=== PATIENT | female | born 1945 | race Caucasian/White ===

== ENCOUNTER 2016-10-06 20:36 | Emergency (ER) | payer MEDICARE, BC ==
[2016-10-06 20:57] VITALS: TEMP 99.4
[2016-10-06 21:32] LABS: BASOPHILS % (AUTO) 1 % (0-3); EOSINOPHILS % (AUTO) 1 % (0-9); HEMATOCRIT 37 % (35-47); MEAN CORPUSCULAR HGB CONC 36.3 gm/dl (32.0-36.0); MEAN CORPUSCULAR VOLUME 90 fL (81-99); MONOCYTES % (AUTO) 5.9 % (0-12); NEUTROPHILS % (AUTO) 75.7 % (37-80)
[2016-10-06 21:40] LABS: CALCIUM 8.3 mg/dl (8.5-10.1); POTASSIUM 3.7 mMol/L (3.5-5.1)
[2016-10-06 23:00] VITALS: BP 129/56; PULSE 70; RESP 18; O2SAT 96
== END 2016-10-06 22:35 | disposition home or self-care (01) | DRG 392 ==
LOC: ED 20:36
DX: R11.2 Nausea with vomiting, unspecified (principal); R42 Dizziness and giddiness
CPT/HCPCS: 36415; 80048; 85025; 93005; 99282